=== PATIENT | male | born 1955 | race Caucasian/White ===

== ENCOUNTER 2021-04-08 10:29 | Emergency (ER) | payer OTHER ==
[2021-04-08] MEDS ORDERED: Acetaminophen 500 MG TAB ONE (13:26)
== END 2021-04-08 13:25 ==
LOC: CSHERS 10:29 → EEVIPCON 10:29 → CSHERS 13:25
DX: S00.01XA Abrasion of scalp, initial encounter (principal); M25.512 Pain in left shoulder; W01.10XA Fall on same level from slipping, tripping and stumbling with subsequent striking against unspecified object, initial encounter; I10 Essential (primary) hypertension; E78.5 Hyperlipidemia, unspecified; E11.9 Type 2 diabetes mellitus without complications; M19.90 Unspecified osteoarthritis, unspecified site
CPT/HCPCS: 70450; 71045

== ENCOUNTER 2021-04-23 05:59 | Inpatient (IN) | payer OTHER ==
[2021-04-23 06:50] LABS: #Basophils 0.1 10x3/uL (0.0-0.2); #Eosinphils 0.3 10x3/uL (0.0-0.5); #Monocytes 0.8 10x3/uL (0.0-1.1); #Neutrophils 11.9 10x3/uL (1.5-8.4); %Basophils 0.4 % (0.0-2.0); %Lymphocytes 4.4 % (18.0-47.0); %Monocytes 5.7 % (0.0-10.0); %Neutrophils 86.5 % (40.0-75.0); Hemoglobin 9.2 g/dL (13.5-17.5); Mean Corpuscular HGB CONC 30.4 g/dL (32.0-36.0); Mean Corpuscular Hemoglobin 24.8 pg (27.0-33.0); Mean Corpuscular Volume 81.7 fl (81.2-95.1); Mean Platelet Volume 9.4 fl (7.4-10.4); Platelet Count 350 10x3/uL (150-450); RBC Distribution Width 14.7 % (11.5-14.5); Red Blood Cell (RBC) Count 3.71 10x6/uL (4.32-5.72); White Blood Cell (WBC) Count 13.8 10x3/uL (3.5-10.5)
[2021-04-23 07:01] LABS: ALT (SGPT) 38 U/L (8-55); AST (SGOT) 35 U/L (5-34); Albumin 3.1 g/dL (3.4-4.8); Alkaline Phosphatase 107 U/L (40-110); Anion Gap 15 mmol/L (10-20); BUN (Urea Nitrogen) 15 mg/dL (8.4-25.7); Bilirubin, Total 0.6 mg/dL (0.2-1.2); Calc. Creatinine Clearance 0 mL/min (70-130); Calcium 8.3 mg/dL (7.8-10.44); Carbon Dioxide 22 mmol/L (23-31); Chloride 104 mmol/L (98-107); Globulin 3.4 g/dL (2.4-3.5); Glucose 208 mg/dL (80-115); Potassium 4.2 mmol/L (3.5-5.1); Protein, Total 6.5 g/dL (5.8-8.1); Sodium 137 mmol/L (136-145)
[2021-04-23 08:37] LABS: SARS-CoV-2 NAA Rapid Test DETECTED (NotDetected)
[2021-04-23 10:53] LABS: Troponin I 0.086 ng/mL (< 0.028)
[2021-04-23] MEDS ORDERED: Ondansetron ODT 4 MG TAB PO PRN (11:35)
[2021-04-23] MEDS ORDERED: HumaLOG 300 UNITS/3 ML VIAL SC PRN (11:35)
[2021-04-23] MEDS ORDERED: Dextrose 50% Abboject 50 ML SYRINGE SLOW IVP PRN (11:35)
[2021-04-23] MEDS ORDERED: Dextrose 5% in Water 1,000 ML IV PRN (11:35)
[2021-04-23] MEDS ORDERED: Acetaminophen 325 MG TAB PO PRN (11:35)
[2021-04-23] MEDS ORDERED: Aspirin 325 MG TAB PO SCH (12:15)
[2021-04-23 12:17] LABS: Magnesium 1.8 mg/dL (1.6-2.6)
[2021-04-23] MEDS ORDERED: Ventolin HFA Inhaler 60 PUFF INHALER INH PRN (12:28)
[2021-04-23] MEDS ORDERED: Benzonatate 100 MG CAP PO PRN (12:28)
[2021-04-23] MEDS ORDERED: Electrolyte Replacement Protocol FS SCH (12:30)
[2021-04-23] MEDS ORDERED: Aspirin 325 MG TAB ONE (13:45)
[2021-04-23] MEDS: HumaLOG 300 UNITS/3 ML VIAL SC PRN (13:58)
[2021-04-23 14:27] LABS: Troponin I 0.144 ng/mL (< 0.028)
[2021-04-23 16:57] LABS: Troponin I 0.201 ng/mL (< 0.028)
[2021-04-23 17:06] LABS: Hemoglobin A1c 9.1 % (4.0-6.0)
[2021-04-23] MEDS ORDERED: Morphine 4 MG/ML VIAL ONE (17:32)
[2021-04-23] MEDS: Morphine 4 MG/ML VIAL SLOW IVP PRN ×2 (17:34→21:08)
[2021-04-23] MEDS: Furosemide 40 MG TAB PO SCH (20:56)
[2021-04-23] MEDS: Calcium Carbonate 600 MG + Vit D TAB PO SCH (20:57)
[2021-04-24 04:53] LABS: #Basophils 0.1 10x3/uL (0.0-0.2); #Eosinphils 0.6 10x3/uL (0.0-0.5); #Monocytes 0.9 10x3/uL (0.0-1.1); #Neutrophils 10.3 10x3/uL (1.5-8.4); %Basophils 0.4 % (0.0-2.0); %Eosinophils 4.6 % (0.0-6.0); %Lymphocytes 6.8 % (18.0-47.0); %Monocytes 6.9 % (0.0-10.0); %Neutrophils 80.8 % (40.0-75.0); Hemoglobin 9.4 g/dL (13.5-17.5); Mean Corpuscular HGB CONC 30.9 g/dL (32.0-36.0); Mean Corpuscular Hemoglobin 25.2 pg (27.0-33.0); Mean Corpuscular Volume 81.5 fl (81.2-95.1); Mean Platelet Volume 9.4 fl (7.4-10.4); Platelet Count 396 10x3/uL (150-450); RBC Distribution Width 14.7 % (11.5-14.5); Red Blood Cell (RBC) Count 3.73 10x6/uL (4.32-5.72); White Blood Cell (WBC) Count 12.7 10x3/uL (3.5-10.5)
[2021-04-24 05:10] LABS: Anion Gap 14 mmol/L (10-20); BUN (Urea Nitrogen) 17 mg/dL (8.4-25.7); Calc. Creatinine Clearance 70 mL/min (70-130); Calcium 8.5 mg/dL (7.8-10.44); Carbon Dioxide 21 mmol/L (23-31); Chloride 106 mmol/L (98-107); Glucose 286 mg/dL (80-115); Potassium 4.4 mmol/L (3.5-5.1); Sodium 137 mmol/L (136-145)
[2021-04-24] MEDS ORDERED: Levothyroxine Sodium 125 MCG TAB PO SCH (06:00)
[2021-04-24] MEDS: HumaLOG 300 UNITS/3 ML VIAL SC PRN ×4 (06:05→20:11)
[2021-04-24] MEDS: Spironolactone 25 MG TAB PO SCH (09:46)
[2021-04-24] MEDS: Terazosin HCl 5 MG CAP PO SCH (09:46)
[2021-04-24] MEDS: Aspirin 325 MG TAB PO SCH (09:46)
[2021-04-24] MEDS: Atorvastatin Calcium 20 MG TAB PO SCH (09:47)
[2021-04-24] MEDS: Calcium Carbonate 600 MG + Vit D TAB PO SCH ×2 (09:47→20:00)
[2021-04-24] MEDS: Furosemide 40 MG TAB PO SCH ×2 (09:47→20:00)
[2021-04-24] MEDS: Morphine 4 MG/ML VIAL SLOW IVP PRN ×3 (10:14→23:45)
[2021-04-24] MEDS ORDERED: Dextrose 5% in Water 1,000 ML IV PRN (10:27)
[2021-04-24] MEDS ORDERED: Dextrose 50% Abboject 50 ML SYRINGE SLOW IVP PRN (10:27)
[2021-04-24] MEDS ORDERED: Carvedilol 6.25 MG TAB PO SCH (10:30)
[2021-04-24] MEDS ORDERED: Lisinopril 5 MG TAB PO SCH (10:30)
[2021-04-24] MEDS: Carvedilol 6.25 MG TAB PO SCH (17:59)
[2021-04-24] MEDS: Acetaminophen 325 MG TAB PO PRN (19:55)
[2021-04-24] MEDS: NPH, Human Insulin Isophane 300 UNIT/3 ML VIAL SC SCH (20:10)
[2021-04-24] MEDS ORDERED: Cholecalciferol 1,000 UNITS (25 MCG) TAB PO SCH (21:00)
[2021-04-24] MEDS ORDERED: HumuLIN 70/30 (300 UNITS/3 ML VIAL) SC SCH (21:00)
[2021-04-25 04:50] LABS: #Basophils 0.1 10x3/uL (0.0-0.2); #Eosinphils 1.2 10x3/uL (0.0-0.5); #Monocytes 0.8 10x3/uL (0.0-1.1); #Neutrophils 9.9 10x3/uL (1.5-8.4); %Basophils 0.6 % (0.0-2.0); %Eosinophils 9.5 % (0.0-6.0); %Lymphocytes 7.4 % (18.0-47.0); %Monocytes 6.1 % (0.0-10.0); %Neutrophils 75.9 % (40.0-75.0); Hemoglobin 9.3 g/dL (13.5-17.5); Mean Corpuscular HGB CONC 29.9 g/dL (32.0-36.0); Mean Corpuscular Hemoglobin 24.9 pg (27.0-33.0); Mean Corpuscular Volume 83.2 fl (81.2-95.1); Mean Platelet Volume 9.6 fl (7.4-10.4); Platelet Count 407 10x3/uL (150-450); RBC Distribution Width 14.8 % (11.5-14.5); Red Blood Cell (RBC) Count 3.74 10x6/uL (4.32-5.72); White Blood Cell (WBC) Count 13.1 10x3/uL (3.5-10.5)
[2021-04-25 05:16] LABS: Anion Gap 13 mmol/L (10-20); BUN (Urea Nitrogen) 18 mg/dL (8.4-25.7); Calc. Creatinine Clearance 78 mL/min (70-130); Calcium 8.8 mg/dL (7.8-10.44); Carbon Dioxide 25 mmol/L (23-31); Cardiac Risk 3.8 (Less than 4.5); Chloride 104 mmol/L (98-107); Cholesterol 79 mg/dl (< 200 Desired); Glucose 124 mg/dL (80-115); HDL Cholesterol 21 mg/dL (>60 Neg Risk); LDL Cholesterol, Calculated 46 mg/dL; Sodium 138 mmol/L (136-145); Triglycerides 59 mg/dL (Less than 150)
[2021-04-25] MEDS: Levothyroxine 150 MCG TAB PO SCH (05:25)
[2021-04-25 05:55] LABS: Platelet Morphology Comment Appears Adequate
[2021-04-25 05:56] LABS: Anisocytosis SLIGHT = 6-15 cells (100X) (0-5/hpf); Hypochromia SLIGHT = 6-15 cells (100X) (0-5/hpf); Macrocytosis SLIGHT = 6-15 cells (100X) (0-5/hpf); Microcytosis SLIGHT = 6-15 cells (100X) (0-5/hpf); Polychromasia SLIGHT = 2-3 cells (100X) (0-2/hpf)
[2021-04-25 05:57] LABS: Target Cells SLIGHT = 2-5 cells (100X) (0-1/hpf)
[2021-04-25] MEDS: HumaLOG 300 UNITS/3 ML VIAL SC PRN ×3 (06:22→17:12)
[2021-04-25] MEDS: Acetaminophen 325 MG TAB PO PRN ×2 (07:31→14:57)
[2021-04-25] MEDS ORDERED: Carvedilol 3.125 MG TAB PO SCH (08:30)
[2021-04-25] MEDS ORDERED: Zinc Sulfate 220 MG CAP PO SCH (09:00)
[2021-04-25] MEDS ORDERED: HumuLIN 70/30 (300 UNITS/3 ML VIAL) SC SCH (09:00)
[2021-04-25] MEDS ORDERED: Ascorbic Acid 500 mg Chewable Tablet PO SCH (09:00)
[2021-04-25] MEDS ORDERED: Lisinopril 5 MG TAB PO SCH (09:00)
[2021-04-25] MEDS: Atorvastatin Calcium 20 MG TAB PO SCH (09:24)
[2021-04-25] MEDS: Spironolactone 25 MG TAB PO SCH (09:24)
[2021-04-25] MEDS: NPH, Human Insulin Isophane 300 UNIT/3 ML VIAL SC SCH ×2 (09:24→21:46)
[2021-04-25] MEDS: Furosemide 40 MG TAB PO SCH ×2 (09:24→21:39)
[2021-04-25] MEDS: Aspirin 325 MG TAB PO SCH (09:24)
[2021-04-25] MEDS: Calcium Carbonate 600 MG + Vit D TAB PO SCH ×2 (09:24→21:39)
[2021-04-25] MEDS: Terazosin HCl 5 MG CAP PO SCH (09:24)
[2021-04-25] MEDS: Lisinopril 2.5 MG TAB PO SCH (09:25)
[2021-04-25] MEDS: Enoxaparin Sodium 40 MG/0.4 ML SYRINGE SC SCH (09:25)
[2021-04-25] MEDS: Carvedilol 6.25 MG TAB PO SCH (09:26)
[2021-04-25] MEDS: traMADol HCl 50 MG TAB PO PRN ×2 (10:10→14:56)
[2021-04-25] MEDS: Morphine 4 MG/ML VIAL SLOW IVP PRN ×2 (13:10→17:12)
[2021-04-25] MEDS: Carvedilol 3.125 MG TAB PO SCH (16:57)
[2021-04-26] MEDS: Levothyroxine 150 MCG TAB PO SCH (05:38)
[2021-04-26] MEDS: Morphine 4 MG/ML VIAL SLOW IVP PRN (07:49)
[2021-04-26 08:12] VITALS: BMI 25.6
[2021-04-26] MEDS: Spironolactone 25 MG TAB PO SCH (10:37)
[2021-04-26] MEDS: Carvedilol 3.125 MG TAB PO SCH ×2 (10:37→17:12)
[2021-04-26] MEDS: Furosemide 40 MG TAB PO SCH ×2 (10:38→20:58)
[2021-04-26] MEDS: Calcium Carbonate 600 MG + Vit D TAB PO SCH ×2 (10:38→20:58)
[2021-04-26] MEDS: NPH, Human Insulin Isophane 300 UNIT/3 ML VIAL SC SCH ×2 (10:39→20:59)
[2021-04-26] MEDS: Terazosin HCl 5 MG CAP PO SCH (10:39)
[2021-04-26] MEDS: Lisinopril 2.5 MG TAB PO SCH (10:39)
[2021-04-26] MEDS: Atorvastatin Calcium 20 MG TAB PO SCH (10:39)
[2021-04-26] MEDS: Aspirin 325 MG TAB PO SCH (10:39)
[2021-04-26] MEDS: Enoxaparin Sodium 40 MG/0.4 ML SYRINGE SC SCH (10:39)
[2021-04-26] MEDS: HumaLOG 300 UNITS/3 ML VIAL SC PRN ×2 (17:14→21:01)
[2021-04-27 05:07] LABS: Anion Gap 14 mmol/L (10-20); BUN (Urea Nitrogen) 20 mg/dL (8.4-25.7); Calc. Creatinine Clearance 82 mL/min (70-130); Calcium 9.4 mg/dL (7.8-10.44); Carbon Dioxide 29 mmol/L (23-31); Chloride 97 mmol/L (98-107); Glucose 206 mg/dL (80-115); Potassium 4.3 mmol/L (3.5-5.1); Sodium 136 mmol/L (136-145)
[2021-04-27 05:12] LABS: #Basophils 0.1 10x3/uL (0.0-0.2); #Eosinphils 1.4 10x3/uL (0.0-0.5); #Monocytes 0.9 10x3/uL (0.0-1.1); #Neutrophils 7.8 10x3/uL (1.5-8.4); %Basophils 0.6 % (0.0-2.0); %Eosinophils 12.3 % (0.0-6.0); %Lymphocytes 7.1 % (18.0-47.0); %Neutrophils 71.2 % (40.0-75.0); Hemoglobin 9.7 g/dL (13.5-17.5); Mean Corpuscular HGB CONC 28.9 g/dL (32.0-36.0); Mean Corpuscular Hemoglobin 24.7 pg (27.0-33.0); Mean Corpuscular Volume 85.5 fl (81.2-95.1); Mean Platelet Volume 9.4 fl (7.4-10.4); Platelet Count 397 10x3/uL (150-450); Red Blood Cell (RBC) Count 3.93 10x6/uL (4.32-5.72)
[2021-04-27 06:16] LABS: Platelet Morphology Comment Appears Adequate
[2021-04-27 06:17] LABS: Anisocytosis SLIGHT = 6-15 cells (100X) (0-5/hpf); Hypochromia SLIGHT = 6-15 cells (100X) (0-5/hpf); Target Cells SLIGHT = 2-5 cells (100X) (0-1/hpf)
[2021-04-27 06:18] LABS: Elliptocytes SLIGHT = 2-5 cells (100X) (0-1/hpf)
[2021-04-27] MEDS: Levothyroxine 150 MCG TAB PO SCH (06:29)
[2021-04-27] MEDS: Carvedilol 3.125 MG TAB PO SCH ×2 (09:58→17:02)
[2021-04-27] MEDS: Spironolactone 25 MG TAB PO SCH (09:58)
[2021-04-27] MEDS: Enoxaparin Sodium 40 MG/0.4 ML SYRINGE SC SCH (09:58)
[2021-04-27] MEDS: Furosemide 40 MG TAB PO SCH ×2 (09:58→22:17)
[2021-04-27] MEDS: Aspirin 325 MG TAB PO SCH (09:58)
[2021-04-27] MEDS: Calcium Carbonate 600 MG + Vit D TAB PO SCH ×2 (09:58→22:17)
[2021-04-27] MEDS: Lisinopril 2.5 MG TAB PO SCH (09:59)
[2021-04-27] MEDS: Atorvastatin Calcium 20 MG TAB PO SCH (09:59)
[2021-04-27] MEDS: Terazosin HCl 5 MG CAP PO SCH (09:59)
[2021-04-27] MEDS: NPH, Human Insulin Isophane 300 UNIT/3 ML VIAL SC SCH ×2 (10:00→22:58)
[2021-04-27] MEDS: HumaLOG 300 UNITS/3 ML VIAL SC PRN (17:03)
[2021-04-27] MEDS: HumaLOG 300 UNITS/3 ML VIAL SC SCH (18:07)
[2021-04-27] MEDS ORDERED: NPH, Human Insulin Isophane 300 UNIT/3 ML VIAL SC SCH (22:30)
[2021-04-28 05:13] LABS: Anion Gap 14 mmol/L (10-20); BUN (Urea Nitrogen) 23 mg/dL (8.4-25.7); Calc. Creatinine Clearance 74 mL/min (70-130); Calcium 9.6 mg/dL (7.8-10.44); Carbon Dioxide 32 mmol/L (23-31); Chloride 96 mmol/L (98-107); Glucose 182 mg/dL (80-115); Sodium 138 mmol/L (136-145)
[2021-04-28 05:23] LABS: #Basophils 0.1 10x3/uL (0.0-0.2); #Eosinphils 1.1 10x3/uL (0.0-0.5); #Neutrophils 7.1 10x3/uL (1.5-8.4); %Basophils 0.8 % (0.0-2.0); %Eosinophils 10.6 % (0.0-6.0); %Lymphocytes 11.3 % (18.0-47.0); %Neutrophils 67.5 % (40.0-75.0); Hemoglobin 10.6 g/dL (13.5-17.5); Mean Corpuscular HGB CONC 30.7 g/dL (32.0-36.0); Mean Corpuscular Hemoglobin 25.1 pg (27.0-33.0); Mean Corpuscular Volume 81.6 fl (81.2-95.1); Mean Platelet Volume 9.3 fl (7.4-10.4); Platelet Count 446 10x3/uL (150-450); Red Blood Cell (RBC) Count 4.23 10x6/uL (4.32-5.72); White Blood Cell (WBC) Count 10.5 10x3/uL (3.5-10.5)
[2021-04-28] MEDS: Levothyroxine 150 MCG TAB PO SCH (07:19)
[2021-04-28] MEDS: Terazosin HCl 5 MG CAP PO SCH (09:30)
[2021-04-28] MEDS: Lisinopril 2.5 MG TAB PO SCH (09:30)
[2021-04-28] MEDS: Furosemide 40 MG TAB PO SCH ×3 (09:30→21:07)
[2021-04-28] MEDS: Spironolactone 25 MG TAB PO SCH (09:31)
[2021-04-28] MEDS: Calcium Carbonate 600 MG + Vit D TAB PO SCH ×2 (09:31→21:03)
[2021-04-28] MEDS: Carvedilol 3.125 MG TAB PO SCH ×2 (09:31→18:00)
[2021-04-28] MEDS: Aspirin 325 MG TAB PO SCH (09:31)
[2021-04-28] MEDS: Atorvastatin Calcium 20 MG TAB PO SCH (09:32)
[2021-04-28] MEDS: Enoxaparin Sodium 40 MG/0.4 ML SYRINGE SC SCH (09:32)
[2021-04-28] MEDS: HumaLOG 300 UNITS/3 ML VIAL SC SCH ×3 (09:33→18:00)
[2021-04-28] MEDS: NPH, Human Insulin Isophane 300 UNIT/3 ML VIAL SC SCH ×2 (09:33→21:07)
[2021-04-28] MEDS: HumaLOG 300 UNITS/3 ML VIAL SC PRN ×2 (13:01→21:04)
[2021-04-29] MEDS: HumaLOG 300 UNITS/3 ML VIAL SC PRN ×3 (00:13→12:41)
[2021-04-29] MEDS: Levothyroxine 150 MCG TAB PO SCH (05:08)
[2021-04-29 05:38] LABS: #Basophils 0.1 10x3/uL (0.0-0.2); #Eosinphils 0.9 10x3/uL (0.0-0.5); #Neutrophils 8.1 10x3/uL (1.5-8.4); %Basophils 0.6 % (0.0-2.0); %Eosinophils 8.2 % (0.0-6.0); %Lymphocytes 9.7 % (18.0-47.0); %Neutrophils 71.8 % (40.0-75.0); Hemoglobin 10.5 g/dL (13.5-17.5); Mean Corpuscular HGB CONC 30.9 g/dL (32.0-36.0); Mean Corpuscular Hemoglobin 24.8 pg (27.0-33.0); Mean Corpuscular Volume 80.2 fl (81.2-95.1); Mean Platelet Volume 9.6 fl (7.4-10.4); Platelet Count 471 10x3/uL (150-450); RBC Distribution Width 15.1 % (11.5-14.5); Red Blood Cell (RBC) Count 4.24 10x6/uL (4.32-5.72); White Blood Cell (WBC) Count 11.3 10x3/uL (3.5-10.5)
[2021-04-29 05:44] LABS: Anion Gap 15 mmol/L (10-20); BUN (Urea Nitrogen) 26 mg/dL (8.4-25.7); Calc. Creatinine Clearance 58 mL/min (70-130); Calcium 9.3 mg/dL (7.8-10.44); Carbon Dioxide 34 mmol/L (23-31); Chloride 93 mmol/L (98-107); Glucose 268 mg/dL (80-115); Potassium 4.5 mmol/L (3.5-5.1); Sodium 137 mmol/L (136-145)
[2021-04-29] MEDS: Spironolactone 25 MG TAB PO SCH (09:34)
[2021-04-29] MEDS: Lisinopril 2.5 MG TAB PO SCH (09:34)
[2021-04-29] MEDS: Carvedilol 3.125 MG TAB PO SCH ×2 (09:34→17:51)
[2021-04-29] MEDS: Acetaminophen 325 MG TAB PO PRN (09:34)
[2021-04-29] MEDS: Calcium Carbonate 600 MG + Vit D TAB PO SCH ×2 (09:35→20:15)
[2021-04-29] MEDS: HumaLOG 300 UNITS/3 ML VIAL SC SCH ×3 (09:35→17:08)
[2021-04-29] MEDS: Terazosin HCl 5 MG CAP PO SCH (09:35)
[2021-04-29] MEDS: Furosemide 40 MG TAB PO SCH ×2 (09:35→20:15)
[2021-04-29] MEDS: Aspirin 325 MG TAB PO SCH (09:35)
[2021-04-29] MEDS: Atorvastatin Calcium 20 MG TAB PO SCH (09:35)
[2021-04-29] MEDS: NPH, Human Insulin Isophane 300 UNIT/3 ML VIAL SC SCH ×2 (09:36→22:55)
[2021-04-29] MEDS: Enoxaparin Sodium 40 MG/0.4 ML SYRINGE SC SCH (09:36)
[2021-04-29] MEDS: traMADol HCl 50 MG TAB PO PRN (09:47)
[2021-04-29] MEDS ORDERED: traMADol HCl 50 MG TAB PO SCH (23:45)
[2021-04-30] MEDS: HumaLOG 300 UNITS/3 ML VIAL SC PRN (04:21)
[2021-04-30 04:37] VITALS: BP 116/65; TEMP 98.7
== END 2021-04-30 04:15 | disposition short-term general hospital (02) | DRG 64 ==
LOC: EEVIPCON 05:59 → CSHERS 05:59 → CSHERHOLD 13:32 → CSHTELE 18:13
PROVIDERS: ADMIT Family Medicine; ATTEND Family Medicine
PROC: 8E0ZXY6 Isolation (ICD-10-PCS; principal; 2021-04-23)
DX: I63.81 Other cerebral infarction due to occlusion or stenosis of small artery (principal); I50.23 Acute on chronic systolic (congestive) heart failure; U07.1 COVID-19; S82.091A Other fracture of right patella, initial encounter for closed fracture; J45.909 Unspecified asthma, uncomplicated; I25.10 Atherosclerotic heart disease of native coronary artery without angina pectoris; E78.5 Hyperlipidemia, unspecified; F41.9 Anxiety disorder, unspecified; F32.A Depression, unspecified; E11.65 Type 2 diabetes mellitus with hyperglycemia; D64.9 Anemia, unspecified; I11.0 Hypertensive heart disease with heart failure; M19.90 Unspecified osteoarthritis, unspecified site; I65.23 Occlusion and stenosis of bilateral carotid arteries; N40.0 Benign prostatic hyperplasia without lower urinary tract symptoms; I48.0 Paroxysmal atrial fibrillation; E03.9 Hypothyroidism, unspecified; W19.XXXA Unspecified fall, initial encounter; Z95.5 Presence of coronary angioplasty implant and graft; I25.2 Old myocardial infarction; Z79.4 Long term (current) use of insulin; Z79.899 Other long term (current) drug therapy
CPT/HCPCS: 36415; 36416; 70450; 70551; 71045; 71275; 80048; 80053; 80061; 83036; 83735; 83880; 84439; 84443; 84484; 85025; 86140; 93005; 93010; 93306; 93880; 94760; J1650; J1815; J2270; U0002